=== PATIENT | female | born 1950 | race Two or more races ===

== ENCOUNTER → 2020-07-18 | Outpatient (CLI) | payer MEDICARE ==
--- NOTE | 2020-07-18 13:44 | KCIC ---
EXAM: CHEST 2 VIEWS. HISTORY: Chest pain, hoarseness. COMPARISON: None. FINDINGS: Frontal and lateral views of the chest are obtained. There are no confluent infiltrates. The hemidiaphragms are mildly flattened on the lateral projection. There is no pneumothorax or pleural effusion. The heart is not enlarged. Cholecystectomy clips are noted. IMPRESSION: 1. Correlate for chronic obstructive pulmonary disease. No confluent infiltrates. Electronically signed by: Abel Ramos MD (07/18/2020 1:42 PM) [id number]
== END | disposition home or self-care (01) ==
LOC: KCIC 13:00
PROVIDERS: ATTEND Internal Medicine Gastroenterology
DX: R07.89 Other chest pain (principal); R49.0 Dysphonia; M54.6 Pain in thoracic spine; Z90.49 Acquired absence of other specified parts of digestive tract
CPT/HCPCS: 71046

== ENCOUNTER → 2020-07-31 | Outpatient (CLI) | payer MEDICARE ==
--- NOTE | 2020-08-05 11:03 | RAD ---
DATE: 07/31/2020 11:24 AM EXAM: DIGITAL SCREEN BILAT W/CAD HISTORY: Screening COMPARISON: None. This is a baseline. Bilateral full field craniocaudal and mediolateral oblique images were obtained using digital technique. This study was interpreted with the benefit of Computerized Aided Detection (CAD). FINDINGS: Breast Density: SCATTERED The breast parenchyma shows scattered fibroglandular densities. Breast parenchyma level B Negative right mammogram. Focal asymmetry best seen on the CC view slightly lateral of midline and likely superior on the MLO view needs additional imaging with full-field lateral view and preferable 3-D imaging with possible targeted left breast ultrasound. This could be overlap of benign fibroglandular tissue.. IMPRESSION: Left breast focal asymmetry, findings for which additional imaging is advised. BI-RADS CATEGORY: 0 INCOMPLETE: NEEDS ADDITIONAL IMAGING EVALUATION AND/OR PRIOR MAMMOGRAMS FOR COMPARISON. RECOMMENDED FOLLOW-UP: ADD ADDITIONAL IMAGING The patient will be contacted to return for additional imaging and a supplemental report will follow. PQRS compliance statement: Patient information was entered into a reminder system with a target due date for the next mammogram. Mammography is a sensitive method for finding small breast cancers, but it does not detect them all and is not a substitute for careful clinical examination. A negative mammogram does not negate a clinically suspicious finding and should not result in delay in biopsying a clinically suspicious abnormality. "Our facility is accredited by the [employer] Mammography Program."
== END | disposition home or self-care (01) ==
LOC: MAMMO 11:10
PROVIDERS: ATTEND Family Medicine
DX: Z12.31 Encounter for screening mammogram for malignant neoplasm of breast (principal); N64.89 Other specified disorders of breast
CPT/HCPCS: 77067

== ENCOUNTER → 2020-08-18 | Outpatient (CLI) | payer MEDICARE ==
--- NOTE | 2020-08-18 16:09 | RAD ---
CLINICAL INDICATION: ELIDA ALEXANDER, who is 70 years of age, presents for further evaluation of a finding noted on her most recent screening mammographic examination. On that examination an asymmetry was reported within the left breast COMPARISON: Prior mammographic imaging 07/31/2020 TECHNIQUE: Diagnostic views of the left breast were obtained, utilizing digital technique. BREAST COMPOSITION: There are scattered fibroglandular densities. MAMMOGRAM FINDINGS: The previously seen asymmetry dissipates on the spot compression views. However a new asymmetry in the slightly lateral, superior left breast is seen. Therefore ultrasound was performed. ULTRASOUND FINDINGS: Targeted ultrasound of the mammographic area of concern was performed. Sonographic imaging of the left upper outer breast and left axilla demonstrates dense parenchymal tissue of normal echotexture is present. The visualized axilla appears unremarkable. IMPRESSION: 1. No mammographic evidence of malignancy in either breast. RECOMMENDATION: In the absence of new clinical symptoms or change in physical exam, annual screening mammography is recommended BIRADS 2: BENIGN Electronically signed by: Escobar Osullivan MD (08/18/2020 4:06 PM) [id number]
== END | disposition home or self-care (01) ==
LOC: MAMMO 09:41
PROVIDERS: ATTEND Family Medicine
DX: R92.2 Inconclusive mammogram (principal)
CPT/HCPCS: 76641; 77065; G0279; 77061

== ENCOUNTER → 2021-12-14 | Outpatient (CLI) | payer MEDICARE ==
--- NOTE | 2021-12-15 09:30 | KCIC ---
Exam Date: 12/14/2021 2:20 PM XR SHOULDER_LEFT 2+ VIEWS Indication: Reason: LEFT SHOULDER PAIN 4-5 MONTHS, NO INJURY / Spl. Instructions: / History: . FINDINGS/ IMPRESSION: No acute fracture or dislocation. Mild degenerative changes are noted. Alignment is maintained. Th e soft tissues are within normal limits. Electronically signed by: Marc Chery MD (12/15/2021 9:25 AM) [id number]
--- NOTE | 2021-12-15 09:31 | KCIC ---
Exam Date: 12/14/2021 2:20 PM XR LUMBAR SPINE 2-3V Indication: Reason: LBP 4-5 MONTHS, NO INJURY / Spl. Instructions: / History: . FINDINGS/ IMPRESSION: Anatomic alignment is maintained without spondylolisthesis. The vertebral body heights are maintaine d without evidence of compression fracture. Mild disc space narrowing seen at multiple levels with s mall osteophytes and mild to moderate facet joint arthropathy. Degenerative changes are seen in the S I joints. The visualized soft tissues are within normal limits. Electronically signed by: Marc Chery MD (12/15/2021 9:26 AM) [id number]
== END ==
LOC: KCIC 15:29
PROVIDERS: ATTEND Family Medicine
DX: M19.012 Primary osteoarthritis, left shoulder (principal); M48.8X6 Other specified spondylopathies, lumbar region; M48.061 Spinal stenosis, lumbar region without neurogenic claudication; M25.78 Osteophyte, vertebrae; M46.1 Sacroiliitis, not elsewhere classified
CPT/HCPCS: 72100; 73030

== ENCOUNTER → 2022-01-05 | Outpatient (CLI) | payer MEDICARE ==
--- NOTE | 2022-01-05 16:52 | RAD ---
Bilateral digital screening 2-D and 3-D (digital breast tomosynthesis) mammogram: Reason for examination: Routine screening. Comparison: Mammogram from 07/31/2020 and 08/18/2020. Left breast ultrasound from 08/18/2020. Interpretation was made with the benefit of CAD. FINDINGS: Breast density: Category B. There are scattered areas of fibroglandular density. No suspicious breast mass, malignant appearing calcifications, or architectural distortion is seen. IMPRESSION: No evidence of malignancy. Assessment: BI-RADS 1. Negative. Recommendation: Routine screening mammograms. The patient will receive a letter with the results in the mail. Patient information will be entered i nto the mammography reminder system with a target recall date for the next mammogram. A reminder nicanor er will be generated. Electronically signed by: Tess Chow MD (01/05/2022 4:50 PM) [id number]
== END ==
LOC: MAMMO 12:55
PROVIDERS: ATTEND Family Medicine
DX: Z12.31 Encounter for screening mammogram for malignant neoplasm of breast (principal)
CPT/HCPCS: 77063; 77067